=== PATIENT | female | born 1975 | race Caucasian/White ===

== ENCOUNTER 2023-10-29 08:46 | Emergency (ER) | payer BC ==
[~2023-10-29] VITALS: Ht 167.6 cm; Wt 104.8 kg
[2023-10-29 08:46] VITALS: BP_SYST 157; PULSE 104; RESP 20; TEMP 97.3; O2SAT 100
[2023-10-29 09:24] LABS: BASOPHILS % (AUTO) 0.5 % (0.0-2.0); EOSINOPHILS # (AUTO) 0.1 K/uL (0.0-0.4); EOSINOPHILS % (AUTO) 0.8 % (0.0-4.0); HEMATOCRIT 40.1 % (36-48); HEMOGLOBIN 13.7 g/dL (12.0-16.0); LYMPHOCYTES # (AUTO) 1.6 K/uL (1.0-5.5); MEAN CORPUSCULAR HEMOGLOBIN 31 pg (27-31); MEAN CORPUSCULAR HGB CONC 34 % (32-36); MEAN CORPUSCULAR VOLUME 90 fL (79.0-98.0); MONOCYTES # (AUTO) 0.4 K/uL (0.0-1.0); MONOCYTES % (AUTO) 5.3 % (1.7-9.3); NEUTROPHILS # (AUTO) 6.3 K/uL (1.8-7.7); NEUTROPHILS % (AUTO) 74.4 % (40.0-70.0); PLATELET COUNT (AUTO) 247 K/uL (130-430); RED BLOOD CELL COUNT(AUTO) 4.47 MIL/uL (4.2-6.2); RED CELL DISTRIBUTION WIDTH 14.1 % (9.0-15.0); WHITE BLOOD COUNT (AUTO) 8.5 K/uL (4.8-10.8)
[2023-10-29 09:38] LABS: CALCIUM 9.6 mg/dL (8.4-11.0); CREATININE 0.84 mg/dL (0.55-1.30); POTASSIUM 3.6 mmol/L (3.5-5.1)
[2023-10-29 09:52] LABS: THYROID STIMULATING HORMONE 1.48 uIu/mL (0.34-4.82)
[2023-10-29 11:25] VITALS: BP_SYST 131; PULSE 98; RESP 17; O2SAT 99
== END 2023-10-29 11:28 | disposition home or self-care (01) ==
LOC: SED 08:46
DX: F41.9 Anxiety disorder, unspecified (principal); R00.2 Palpitations; R05.9 Cough, unspecified; Z79.899 Other long term (current) drug therapy
CPT/HCPCS: 36415; 80048; 81025; 84443; 84484; 85025; 93005; 99284